=== PATIENT | male | born 1960 | race Caucasian/White ===

== ENCOUNTER 2016-12-25 09:49 | Day surgery (SDC) | payer OTHER ==
--- NOTE | ~2016-12-25 | EGD ---
EGD REPORT [facility] [address] [place] [address] NAME: JN LATIF : [birth year] STATUS : REG [facility]#: [id number] AGE: 56 ADM/REG DATE : 12/25/16 MR#: [id number] REPORT SERV DATE: 12/25/16 DICTATED BY: FRANCIE QUIROS DATE: 12/25/16 REPORT STATUS : Draft TRANSCRIBED BY: [facility] DATE: 12/25/16 Endoscopy Center Patient Name: Jn Latif Date of : 1960 Attending MD: FRANCIE QUIROS MD Procedure Date No Time: 12/25/2016 Procedure: Colonoscopy Indications: Screening for colorectal malignant neoplasm Referring MD: Chan Ramirez Medicines: as per anesthesia Complications: No immediate complications. Procedure: Pre-Anesthesia Assessment: - ASA Grade Assessment: II - A patient with mild systemic disease. After I obtained informed consent, the scope was passed under direct vision. Throughout the procedure, the patient's blood pressure, pulse, and oxygen saturations were monitored continuously. The PCF [id number] was introduced through the anus and advanced to the cecum, identified by appendiceal orifice and ileocecal valve. The colonoscopy was performed without difficulty. The patient tolerated the procedure. The quality of the bowel preparation was adequate to identify polyps. Findings: The perianal and digital rectal examinations were normal. Internal hemorrhoids were found during endoscopy and were mild. Impression: - Internal hemorrhoids. Recommendation: - Repeat colonoscopy in 10 years for surveillance. Procedure Code(s): --- Professional --- 77965, Colonoscopy, flexible, proximal to splenic flexure; diagnostic, with or without collection of specimen(s) by brushing or washing, with or without colon decompression (separate procedure) Diagnosis Code(s): --- Professional --- K64.8, Other hemorrhoids Z12.11, Encounter for screening for malignant neoplasm of colon CPT copyright 2013 [employer]. All rights reserved. EGD REPORT [facility] [address] [place]. [address] NAME: JN LATIF : [birth year] STATUS : REG [facility]#: [id number] AGE: 56 ADM/REG DATE : 12/25/16 MR#: [id number] REPORT SERV DATE: 12/25/16 DICTATED BY: FRANCIE QUIROS. DATE: 12/25/16 REPORT STATUS : Draft TRANSCRIBED BY: [employer] DATE: 12/25/16 The codes documented in this report are preliminary and upon planer offbearer review may be revised to meet current compliance requirements. FRANCIE QUIROS MD 12/25/2016 12:34 PM This report has been signed electronically. Number of Addenda: 0 Note Initiated On: 12/25/2016 12:03 PM [address] [facility] [address] [place], [place] [id number]
--- NOTE | ~2016-12-25 | EGD ---
EGD REPORT [facility] [address] [address] NAME: JN LATIF : [birth year] STATUS : REG [facility]#: [id number] AGE: 56 ADM/REG DATE : 12/25/16 MR#: [id number] REPORT SERV DATE: 12/25/16 DICTATED BY: FRANCIE QUIROS DATE: 12/25/16 REPORT STATUS : Draft TRANSCRIBED BY: [facility] DATE: 12/25/16 Endoscopy Center Patient Name: Jn Latif Date of : 1960 Attending MD: FRANCIE QUIROS MD Procedure Date No Time: 12/25/2016 Procedure: Upper GI endoscopy Indications: Epigastric abdominal pain, Unexplained chest pain Referring MD: Chan Ramirez Medicines: as per anesthesia Complications: No immediate complications. Procedure: Pre-Anesthesia Assessment: - ASA Grade Assessment: II - A patient with mild systemic disease. After obtaining informed consent, the endoscope was passed under direct vision. Throughout the procedure, the patient's blood pressure, pulse, and oxygen saturations were monitored continuously. The GIF [id number] was introduced through the mouth, and advanced to the third part of duodenum. The upper GI endoscopy was accomplished without difficulty. The patient tolerated the procedure. Findings: The examined esophagus was normal. The entire examined stomach was normal. The cardia and gastric fundus were normal on retroflexion. The examined duodenum was normal. Impression: - Normal esophagus. - Normal stomach. - Normal examined duodenum. Recommendation: - Continue present medications. Procedure Code(s): --- Professional --- 74612, Esophagogastroduodenoscopy, flexible, transoral; diagnostic, including collection of specimen(s) by brushing or washing, when performed (separate procedure) Diagnosis Code(s): --- Professional --- R10.13, Epigastric pain R07.9, Chest pain, unspecified EGD REPORT [facility] [address] [place]. [address] NAME: JN LATIF : [birth year] STATUS : REG [facility] [place] PAT#: [id number] AGE: 56 ADM/REG DATE : 12/25/16 MR#: [id number] REPORT SERV DATE: 12/25/16 DICTATED BY: FRANCIE QUIROS DATE: 12/25/16 REPORT STATUS : Draft TRANSCRIBED BY: [employer] DATE: 12/25/16 CPT copyright 2013 [employer]. All rights reserved. The codes documented in this report are preliminary and upon plastic sheets supervisor review may be revised to meet current compliance requirements. FRANCIE QUIROS MD 12/25/2016 12:18 PM This report has been signed electronically. Number of Addenda: 0 Note Initiated On: 12/25/2016 12:05 PM Scope Withdrawal Time 0 hours 0 minutes 0 seconds [address] [place] [address]
[~2016-12-25 09:49] MED LIST: *DENIES
== END 2016-12-25 23:59 | disposition home or self-care (01) ==
LOC: DMU 09:49
PROVIDERS: Internal Medicine Gastroenterology
PROC: 0DJD8ZZ Inspection of Lower Intestinal Tract, Via Natural or Artificial Opening Endoscopic (ICD-10-PCS; principal; 2016-12-25 11:00)
PROC: 0DJ08ZZ Inspection of Upper Intestinal Tract, Via Natural or Artificial Opening Endoscopic (ICD-10-PCS; 2016-12-25 11:00)
DX: Z12.11 Encounter for screening for malignant neoplasm of colon (principal); K64.8 Other hemorrhoids; E66.9 Obesity, unspecified; Z98.890 Other specified postprocedural states; G43.909 Migraine, unspecified, not intractable, without status migrainosus; Z87.891 Personal history of nicotine dependence; R10.13 Epigastric pain; R07.9 Chest pain, unspecified